=== PATIENT | male | born 1955 | race Caucasian/White ===

== ENCOUNTER 2016-08-03 11:31 | Emergency (ER) | payer OTHER ==
[~2016-08-03 11:31] MED LIST: ACYC800T PO; ASPI1TAB69 PO; CALC1TAB63 PO; FEXO15TA PO; MEDI220T PO; MISC1TAB9 PO; MULTTAB67 PO; PANT40TA3 PO; SIMV40TA PO
[2016-08-03 11:40] VITALS: BP 149/91; PULSE 62; RESP 20; TEMP 98.2; O2SAT 95
--- NOTE | 2016-08-03 12:05 | PD ---
HPI Chief Complaint: Dizziness Time Seen by Provider: 11:49 Travel History International Travel<30 days: No Contact w/Intl Traveler<30days: No Traveled to known affect area: No History of Present Illness HPI This 61-year-old male is been feeling dizzy for several days. By dizzy referring to his vague unsteadiness. He is not having the room spinning around. She does have a history of positional vertigo for which she does the Astno maneuver himself is different. He says he is also had occasional right- sided chest pain which lasted about [address] Hughes and she recently changed his cholesterol medicine. He did go through the chest pain center here in 2014 and had a negative stress test at that time. PFSH Past Medical History Arthritis: Yes Heart Rhythm Problems: No Cardiovascular Problems: Yes High Cholesterol: Yes Congestive Heart Failure: No Diabetes: No Diminished Hearing: No GERD: Yes Immunizations Current: Yes Triglycerides - High: Yes Past Surgical History Other Surgery: Yes (carpal tunnel release and bilateral elbow surgery 10/04) Social History Alcohol Use: Yes (MOST DAYS) Tobacco Use: Yes (quit) Substance Use: No Allergies-Medications (Allergen,Severity, Reaction): Coded Allergies: No Known Allergies (Unverified , 08/03/16) Reported Meds & Prescriptions Reported Meds & Active Scripts Active Reported Naproxen Sodium 220 Mg Tab 220 Mg PO DAILY PRN Nkechi Allergy (Fexofenadine HCl) 180 Mg Tab 180 Mg PO DAILY Calcium 600+D3 (Calcium Carbonate-Cholecalciferol) 1 Tab Tab 1 Tab PO DAILY Osteo Bi-Flex/5-Loxin Adv ([facility] Natural Products) 1 Tab Tab 2 Tab PO DAILY Multiple Vitamin 1 Tab 1 Tab PO DAILY Aspirin 81 Mg Tabdr 81 Mg PO DAILY Simvastatin 40 Mg Tab 40 Mg PO HS Pantoprazole (Pantoprazole Sodium) 40 Mg Tab 40 Mg PO DAILY Acyclovir 800 Mg Tab 800 Mg PO DAILY Review of Systems General / Constitutional: No: Fever, Chills Eyes: No: Diploplia, Blurred Vision HENT: Positive: Lightheadedness, No: Headaches, Vertigo Cardiovascular: Positive: Chest Pain or Discomfort Respiratory: No: Cough, Shortness of Breath Gastrointestinal: No: Nausea, Vomiting Genitourinary: No: Urgency, Frequency Musculoskeletal: No: Myalgias, Arthralgias Skin: No Rash, No Itching Neurologic: Positive: Dizziness, No: Weakness Hematologic/Lymphatic: No: Easy Bruising Physical Exam Narrative GENERAL: [-] SKIN: Focused skin assessment warm/dry. HEAD: Atraumatic. Normocephalic. EYES: Pupils equal and round. No scleral icterus. No injection or drainage. ENT: No nasal bleeding or discharge. Mucous membranes pink and moist. NECK: Trachea midline. No JVD. CARDIOVASCULAR: Regular rate and rhythm. No murmur appreciated. RESPIRATORY: No accessory muscle use. Clear to auscultation. Breath sounds equal bilaterally. GASTROINTESTINAL: Abdomen soft, non-tender, nondistended. Hepatic and splenic margins not palpable. MUSCULOSKELETAL: No obvious deformities. No clubbing. No cyanosis. No edema. NEUROLOGICAL: Awake and alert. No obvious cranial nerve deficits. Motor grossly within normal limits. Normal speech. PSYCHIATRIC: Appropriate mood and affect; insight and judgment normal. Data Data Last Documented VS Vital Signs Date Time Temp Pulse Resp B/P Pulse Ox O2 Delivery O2 Flow Rate FiO2 08/03/16 12:55 70 18 125/77 100 08/03/16 11:54 Room Air 08/03/16 11:40 98.2 Orders Electrocardiogram (08/03/16 12:02) Complete Blood Count With Diff (08/03/16 12:02) Basic Metabolic Panel (Bmp) (08/03/16 12:02) Troponin I (08/03/16 12:02) Labs Laboratory Tests Test 08/03/16 12:30 White Blood Count 5.5 TH/MM3 Red Blood Count 5.03 MIL/MM3 Hemoglobin 15.5 GM/DL Hematocrit 47.1 % Mean Corpuscular Volume 93.6 FL Mean Corpuscular Hemoglobin 30.9 PG Mean Corpuscular Hemoglobin 33.0 % Concent Red Cell Distribution Width 12.3 % Platelet Count 143 TH/MM3 Mean Platelet Volume 8.1 FL Neutrophils (%) (Auto) 75.1 % Lymphocytes (%) (Auto) 15.8 % Monocytes (%) (Auto) 7.6 % Eosinophils (%) (Auto) 1.1 % Basophils (%) (Auto) 0.4 % Neutrophils # (Auto) 4.1 TH/MM3 Lymphocytes # (Auto) 0.9 TH/MM3 Monocytes # (Auto) 0.4 TH/MM3 Eosinophils # (Auto) 0.1 TH/MM3 Basophils # (Auto) 0.0 TH/MM3 CBC Comment DIFF FINAL Differential Comment Sodium Level 142 MEQ/L Potassium Level 4.2 MEQ/L Chloride Level 106 MEQ/L Carbon Dioxide Level 28.1 MEQ/L Anion Gap 8 MEQ/L Blood Urea Nitrogen 12 MG/DL Creatinine 0.83 MG/DL Estimat Glomerular Filtration 94 ML/MIN Rate Random Glucose 98 MG/DL Calcium Level 9.2 MG/DL Troponin I LESS THAN 0.02 NG/ML MDM Medical Decision Making Medical Screen Exam Complete: Yes Emergency Medical Condition: Yes Medical Record Reviewed: Yes Differential Diagnosis Differential includes anemia, electrolyte imbalance, disequilibrium Narrative Course EKG shows sinus rhythm. Troponin is normal. His chest pain is very atypical and only lasts a few seconds. Don't think chest pain workup is warranted. His main complaint is this disequilibrium. His hemoglobin is normal. Electrolytes are normal. He is stable for discharge this may be a viral syndrome. I advised to return if symptoms should worsen Diagnosis Primary Impression: Disequilibrium Additional Instructions: Rest, return if symptoms recur Disposition: 01 DISCHARGE HOME Condition: Stable Seymour Ball MD Aug 03, 2016 12:05
[2016-08-03 12:36] LABS: AUTOMATED NEUTROPHIL # 4.1 TH/MM3 (1.8-7.7); BASOPHIL % 0.4 % (0.0-2.0); EOSINOPHIL # 0.1 TH/MM3 (0-0.4); EOSINOPHIL % 1.1 % (0.0-4.0); HEMATOCRIT 47.1 % (39.0-51.0); HEMO FLAGS DIFF FINAL; LYMPH % 15.8 % (9.0-44.0); LYMPHOCYTE # 0.9 TH/MM3 (1.0-4.8); MEAN CELL VOLUME 93.6 FL (80.0-100.0); MEAN CORPUSCULAR HEMOGLOBIN 30.9 PG (27.0-34.0); MONO % 7.6 % (0.0-8.0); NEUT % 75.1 % (16.0-70.0); PLATELET COUNT 143 TH/MM3 (150-450); RED BLOOD COUNT 5.03 MIL/MM3 (4.50-5.90); RED CELL DISTRIBUTION WIDTH 12.3 % (11.6-17.2); WHITE BLOOD COUNT 5.5 TH/MM3 (4.0-11.0)
[2016-08-03 12:47] LABS: CHLORIDE 106 MEQ/L (98-107); POTASSIUM 4.2 MEQ/L (3.5-5.1); SODIUM (NA) 142 MEQ/L (136-145)
[2016-08-03 12:51] LABS: ANION GAP 8 MEQ/L (5-15); BICARBONATE 28.1 MEQ/L (21.0-32.0); BLOOD UREA NITROGEN 12 MG/DL (7-18)
[2016-08-03 12:54] LABS: GLOMERULAR FILTRATION RATE 94 ML/MIN (>89)
[2016-08-03 12:55] VITALS: BP 125/77; PULSE 70; RESP 18; O2SAT 100
[2016-08-03] MEDS ORDERED: ASPI81TA11 PO (13:30)
[2016-08-03] MEDS ORDERED: GLUC1TAB44 PO (13:30)
[2016-08-03] MEDS ORDERED: ATOR1TAB18 PO (13:30)
[2016-08-03 14:11] VITALS: BP 135/76
--- NOTE | 2016-08-03 14:19 | EKG ---
Date Performed: 08/03/2016 Time Performed: 11:58:03 PTAGE: 61 years EKG: Sinus rhythm WITH SINUS ARRHYTHMIA NO SIGNIFICANT CHANGE FROM PRIOR ELECTROCARDIOGRAM. PREVIOUS TRACING : 11/01/2014 05.48 DOCTOR: Rubens Flores Interpretating Date/Time 08/03/2016 14:17:30
== END 2016-08-03 14:12 | disposition home or self-care (01) ==
LOC: PHED 11:31
DX: R42 Dizziness and giddiness (principal); I49.8 Other specified cardiac arrhythmias; E78.00 Pure hypercholesterolemia, unspecified; K21.9 Gastro-esophageal reflux disease without esophagitis; Z87.891 Personal history of nicotine dependence
CPT/HCPCS: 80048; 84484; 85025; 93005